=== PATIENT | female | born 1970 | race Hispanic/Latino ===

== ENCOUNTER 2021-11-13 18:14 | Emergency (ER) | payer MEDICAID, OTHER ==
[~2021-11-13] VITALS: Ht 157.5 cm; Wt 78.0 kg
[2021-11-13 18:50] LABS: APPEARANCE,URINE CLOUDY (CLEAR); BILIRUBIN,URINE SMALL (NEGATIVE); COLOR,URINE RED (YELLOW); GLUCOSE, URINE (UA) NEGATIVE (NEGATIVE); KETONES,URINE NEGATIVE (NEGATIVE); LEUKOCYTE ESTERASE ,URINE MODERATE (NEGATIVE); NITRATE,URINE NEGATIVE (NEGATIVE); OCCULT BLOOD,URINE LARGE (NEGATIVE); PH,URINE 6.5 (5.0-8.0); PROTEIN,URINE 30 mg/dL (NEGATIVE); UROBILINOGEN,URINE 0.2 mg/dL (0.2-1.0)
[2021-11-13 18:53] LABS: HCG,QUALITATIVE URINE NEGATIVE (NEGATIVE)
[2021-11-13] MEDS ORDERED: 0.9%NACL 1000ML 1,000 ML IV SCH (19:00)
[2021-11-13 19:05] LABS: BASOPHILS % (AUTO) 0.7 % (0.0-5.0); EOSINOPHILS % (AUTO) 3.3 % (0.0-8.0); HEMATOCRIT 34.7 % (36-48); LYMPHOCYTES % (AUTO) 24.7 % (21.0-51.0); MEAN CORPUSCULAR HEMOGLOBIN 29.5 pg (27.0-33.0); MEAN CORPUSCULAR HGB CONC 33.1 g/dL (32.0-36.0); MONOCYTES % (AUTO) 5.7 % (3.0-13.0); PLATELET COUNT (AUTO) 270 K/uL (130-400); RED CELL DISTRIBUTION WIDTH 13.4 % (11.0-15.5); WHITE BLOOD COUNT (AUTO) 6.7 K/uL (4.8-10.8)
[2021-11-13 19:07] LABS: RBC,URINE TNTC /HPF (0-1)
[2021-11-13 19:08] LABS: BACTERIA,URINE Moderate /HPF (None Seen)
[2021-11-13 19:09] LABS: SQUAMOUS EPITHELIAL CELL,UR Rare /HPF (0-2)
[2021-11-13 19:14] LABS: CREATININE 0.9 mg/dL (0.5-1.5); POTASSIUM 3.7 mmol/L (3.5-5.1)
[2021-11-13 19:19] LABS: ALBUMIN 3.9 g/dL (3.5-5.0); TOTAL PROTEIN, SERUM 7.5 g/dL (6.0-8.3)
[2021-11-13 19:34] LABS: INR 0.93 (0.85-1.15); PROTHROMBIN TIME 9.8 SEC (9.6-11.6)
[2021-11-13 19:35] LABS: PARTIAL THROMBOPLASTIN TIME 25.9 SEC (26.3-35.5)
[2021-11-13] MEDS ORDERED: CEPH500B PO (19:36)
[2021-11-13] MEDS ORDERED: PHEN-847 PO (19:36)
[2021-11-13] MEDS ORDERED: PHENAZOPYRIDINE HCL 200 MG TABLET ONE (19:44)
[2021-11-13] MEDS ORDERED: CEFTRIAXONE 1G VIAL ONE (19:47)
[2021-11-13 19:55] VITALS: BP 131/84
[2021-11-13] MEDS ORDERED: CEFTRIAXONE 1G VIAL IVP ONE (20:00)
[2021-11-13] MEDS ORDERED: PHENAZOPYRIDINE HCL 200 MG TABLET PO ONE (20:00)
== END 2021-11-13 20:06 | disposition home or self-care (01) ==
LOC: EDH 18:14
DX: N39.0 Urinary tract infection, site not specified (principal); I95.1 Orthostatic hypotension; N93.8 Other specified abnormal uterine and vaginal bleeding; J45.909 Unspecified asthma, uncomplicated
CPT/HCPCS: 99283; 96374; 96361; 80053; 85025; 85610; 85730; 87088; 81001; 81025; 36415; J7030; J0696